=== PATIENT | male | born 1980 | race African-American/Black ===

== ENCOUNTER 2017-11-06 15:25 | Emergency (ER) | payer MEDICAID ==
[~2017-11-06] VITALS: Ht 175.3 cm; Wt 78.0 kg
[~2017-11-06 15:25] MED LIST: NO HOME MEDS
[2017-11-06 15:30] VITALS: BP 115/72
== END 2017-11-06 18:37 | disposition left against medical advice (07) ==
LOC: ER 15:25
DX: Z53.21 Procedure and treatment not carried out due to patient leaving prior to being seen by health care provider (principal)

== ENCOUNTER 2018-02-18 16:05 | Emergency (ER) | payer MEDICAID ==
[~2018-02-18] VITALS: Ht 170.2 cm; Wt 70.0 kg
[2018-02-18 16:08] VITALS: BP 110/69
== END 2018-02-18 18:16 | disposition left against medical advice (07) ==
LOC: ER 16:05
DX: R53.83 Other fatigue (principal); Z53.21 Procedure and treatment not carried out due to patient leaving prior to being seen by health care provider

== ENCOUNTER 2018-05-31 02:30 | Emergency (ER) | payer MEDICAID ==
[~2018-05-31] VITALS: Ht 177.8 cm; Wt 63.0 kg
[2018-05-31 07:49] VITALS: BP 133/95
== END 2018-05-31 07:24 | disposition left against medical advice (07) ==
LOC: ER 02:30
DX: Z53.21 Procedure and treatment not carried out due to patient leaving prior to being seen by health care provider (principal); I10 Essential (primary) hypertension

== ENCOUNTER 2018-05-31 08:21 | Emergency (ER) | payer MEDICAID | END 2018-05-31 08:55 | disposition left against medical advice (07) | LOC: ER 08:21 | DX: Z53.21 Procedure and treatment not carried out due to patient leaving prior to being seen by health care provider (principal) | CPT/HCPCS: C1893; Z7610 ==